=== PATIENT | male | born 1975 | race Caucasian/White ===

== ENCOUNTER 2021-06-04 21:47 | Emergency (ER) | payer OTHER ==
[~2021-06-04] VITALS: Ht 165.1 cm; Wt 79.4 kg
[2021-06-04 21:55] VITALS: BP_SYST 160
[2021-06-04 22:08] VITALS: BP_SYST 160
== END 2021-06-04 22:08 | disposition home or self-care (01) ==
LOC: SED 21:47
DX: Z04.1 Encounter for examination and observation following transport accident (principal); V49.49XA Driver injured in collision with other motor vehicles in traffic accident, initial encounter; Y93.89 Activity, other specified; Y92.89 Other specified places as the place of occurrence of the external cause; Y99.8 Other external cause status
CPT/HCPCS: 99283